=== PATIENT | female | born 2000 | race Caucasian/White ===

== ENCOUNTER 2018-02-01 22:08 | Emergency (ER) | payer OTHER ==
[~2018-02-01] VITALS: Ht 165.1 cm; Wt 72.6 kg
[2018-02-01 22:28] VITALS: Ht 165.1 cm; Wt 72.6 kg
[2018-02-02 00:02] VITALS: BP 128/71
== END 2018-02-02 00:02 | disposition home or self-care (01) ==
LOC: ED 22:08
DX: S80.11XA Contusion of right lower leg, initial encounter (principal); W01.0XXA Fall on same level from slipping, tripping and stumbling without subsequent striking against object, initial encounter; Y93.89 Activity, other specified; Y92.89 Other specified places as the place of occurrence of the external cause; Y99.8 Other external cause status